=== PATIENT | female | born 1970 | race Caucasian/White ===

== ENCOUNTER 2016-10-01 09:21 | Emergency (ER) | payer BC ==
--- NOTE | 2016-10-01 10:18 | ERNOTE ---
Upper Extremity HPI - Narrative Date of Service: 10/01/16 - General Extremities Pain Location: wrist: left Time Seen by Provider: 10/01/16 10:00 Source: patient, RN notes reviewed Exam Limitations: no limitations - Immun/Allergies/Home Medications Immunizations: IMMUNIZATION HX Immunizations Up to Date No Allergies/Adverse Reactions: Allergies Allergy/AdvReac Type Severity Reaction Status Date / Time No Known Allergies Allergy Unverified 10/01/16 09:44 Home Medications: HOME MEDICATIONS HYDROcodone/ACETAMINOPHEN [[place] 5-325] 1 - 2 tab PO QID PRN #20 tab 10/01/16 [ Last Taken Unknown] - History of Present Illness Narrative: 45 y/o female with NVD x 3 days heading to walk in clinic when she slipped down her steps landing on her back and left wrist. Presented to walk in clinic yet was directed here to ED for radiology films of left wrist. Patient states she slipped on ice and denied CP, SOB, dizziness or syncope. Left wrist swollen Date (Duration): 10/01/16 Time (Timing): 07:45 Occurred: just prior to arrival Location of Incident: home Severity: mild Method of Injury: Reports: fell Reason for Fall: Reports: slipped, other - patients states she slipped on icy steps Loss of Consciousness: Reports: no loss of consciousness Modifying Factors - (Improves): Reports: other - has not attempted any therapies. Denies: pain medication Modifying Factors - (Worsens): Reports: movement Associated Symptoms: Denies: tingling, weakness, numbness distally, loss of feeling, loss of power (lt arm) Other Injuries: Reports: none Prior Treament: Reports: other - seen at walk in clinic for NVD but left wrist pain not addressed at that time Review of Systems - Review of Systems Constitutional: Present: See HPI EYE: Present: no symptoms reported ENT: Present: no symptoms reported Respiratory: Present: no symptoms reported Cardiology: Present: no symptoms reported Gastrointestinal/Abdominal: Present: See HPI Genitourinary: Present: no symptoms reported Musculoskeletal: Present: See HPI Skin: Absent: lesions, lumps, change in color Neurological: Absent: weakness, numbness, tingling Endocrine: Present: no symptoms reported Hematologic/Lymphatic: Present: no symptoms reported Psych: Present: no symptoms reported - Patient's Past Medical History Patient History - Medical: No pertinent hx Patient History - Cardiac/Respiratory: No pertinent hx Patient History - Cancer: No Hx of Cancer Patient History - Surgical Procedures: Noncontributory, Other - Social History Living Situations: home Smoking Status: Current every day smoker Have you smoked in the past 12 months: Yes Physical Exam - Physical Exam General Appearance: Present: wd/wn, alert, no apparent distress Respiratory: Present: no respiratory distress, normal breath sounds, no accessory muscle use, chest nontender, lungs clear Cardiovascular/Chest: Present: regular rate, rhythm, no murmur, normal peripheral pulses Peripheral Pulses: N=norm/S=strong/W=weak/B=bound/A=absent: Radial (L): Strong Extremity Exam: Present: decreased range of motion - limited due to pain in left wrist, joint swelling - left wrist, extremity edema - left wrist, other - tenderness to palpation left wrist, top of left hand Neurological Exam: Present: alert, oriented, normal mood/affect, no motor/ sensory deficits Skin Exam: Present: normal color, warm/dry ED Progress - Vital Signs Patient's Vital Signs:: I have reviewed the patient's vital signs. Vital Signs: Vital Signs 10/01/16 09:41 Temperature 35.9 C L Pulse Rate 73 Respiratory 14 Rate Blood Pressure 114/72 O2 Sat by Pulse 110 H Oximetry - X-Ray X-Ray #1 X-Ray: wrist - left Interpretation: Reviewed by me X-ray Comments: closed nondisplaced fracture of left distal radius - Progress/Reassessment Chief Complaint: Wrist Injury/Pain Progress:: Improved Procedures Location: left wrist Pre-Proc Neuro Vasc Exam: normal Hand-Made Type: ocl Splint: wrist - left radial gutter Alignment good: Yes Splint applied by: Nurse Post-Proc Neuro Vasc Exam: normal Complications: Pt gaby procedure well Departure Clinical Impression: Viral gastroenteritis Radius distal fracture Qualifiers: Encounter type: initial encounter Fracture type: closed Fracture morphology: unspecified fracture morphology Laterality: left Qualified Code(s): S52.502A - Unspecified fracture of the lower end of left radius, initial encounter for closed fracture - Departure Disposition: Home Follow Up Needed Condition: Good Instructions: Radial Fracture, Viral Gastroenteritis, Adult, [id number], Form - Excuse from Work, School, or Physical Activity Additional Instructions: Elevate left extremity, ice 20 minutes on at a time Tylenol for mild pain, prescription pain medication if needed advanced diet as discussed contact orthopedics Monday morning Leave splint in place until orthopedic evaluation Referrals: Jonathan Farfan MD [Staff Physician] - Prescriptions: HYDROcodone/ACETAMINOPHEN [[place] 5-325] 1 - 2 tab PO QID PRN #20 tab PRN Reason: Pain
[2016-10-01] MEDS ORDERED: KETOROLAC TROMETHAMINE 60 MG/2 ML VIAL IM ONE ×2 (10:41→10:44)
[2016-10-01] MEDS ORDERED: PROMETHAZINE HCL 25 MG/ML AMPUL IM ONE (10:41)
[2016-10-01] MEDS ORDERED: PROMETHAZINE HCL 25 MG/ML AMPUL ONE (10:44)
[2016-10-01 11:21] VITALS: BP 126/68
== END 2016-10-01 11:15 | disposition home or self-care (01) ==
LOC: ER 09:21
PROC: 2W3FX1Z Immobilization of Left Hand using Splint (ICD-10-PCS; principal; 2016-10-01)
DX: A08.4 Viral intestinal infection, unspecified (principal); S52.502A Unspecified fracture of the lower end of left radius, initial encounter for closed fracture; F17.210 Nicotine dependence, cigarettes, uncomplicated; W00.9XXA Unspecified fall due to ice and snow, initial encounter; Y92.009 Unspecified place in unspecified non-institutional (private) residence as the place of occurrence of the external cause